=== PATIENT | female | born 1980 | race African-American/Black ===

== ENCOUNTER 2024-04-06 19:48 | Inpatient (IN) | payer MEDICAID, OTHER ==
[~2024-04-06] VITALS: Ht 175.3 cm; Wt 69.6 kg
[2024-04-06] MEDS: SODIUM CHLORIDE 0.9% 1,000 ML IV ONE (20:30)
[2024-04-06 20:51] LABS: Basophils # (auto) 0 10 ^3/uL (0-0.2); Basophils % (auto) 0.2 % (0.0-2.0); Eosinophils # (auto) 0 10 ^3/uL (0-0.8); Eosinophils % (auto) 0.1 % (0.0-7.0); Hematocrit 38.7 % (36.0-46.0); Hemoglobin 13.1 g/dL (12.2-16.2); Lymphocytes # (auto) 1.4 10 ^3/uL (0.4-5.4); Mean Corpuscular Hgb Conc. 33.8 g/dL (32.0-36.0); Mean Corpuscular Volume 88.8 fL (80.0-100.0); Monocytes # (auto) 0.6 10 ^3/uL (0-1.3); Monocytes % (auto) 6.8 % (0.0-12.0); Neutrophils # (auto) 6.7 10 ^3/uL (1.6-8.6); Neutrophils % (auto) 76.9 % (37.0-80.0); Red Blood Cells 4.36 10^6/uL (4.0-5.20); Red Cell Distribution Width 12.1 % (11.8-14.3); White Blood Cell 8.7 10^3/uL (4.4-10.8)
[2024-04-06 21:03] LABS: Chloride 109 mmol/L (98-107); Potassium 3.5 mmol/L (3.5-5.1); Sodium 142 mmol/L (136-145)
[2024-04-06 21:04] LABS: Anion Gap 3 (5-15); Calcium 8.7 mg/dL (8.7-10.4); Carbon Dioxide 30 mmol/L (20-30)
[2024-04-06 21:09] LABS: BUN/Creatinine Ratio 11.6 (10.0-20.0); Blood Urea Nitrogen 10 mg/dL (9-23); Glucose 79 mg/dL (74-106)
[2024-04-06 21:10] LABS: Magnesium 1.8 mg/dL (1.6-2.6)
[2024-04-06] MEDS: IBUPROFEN 400 MG TAB PO ONE (21:49)
[2024-04-06 22:13] LABS: Urine Bacteria FEW /hpf (None Seen); Urine Blood Negative /uL (Negative); Urine Clarity Clear (Clear); Urine Color Yellow (Yellow); Urine Mucus FEW (None Seen); Urine Protein, UAD 1+ (Negative); Urine Specific Gravity 1.038 (1.001-1.035); Urine Urobilinogen 2 mg/dL (Negative); Urine WBC 3 /hpf (0 - 5)
[2024-04-06] MEDS ORDERED: DEXTROSE (50%) 50ML SYRG IV PRN (22:45)
[2024-04-06] MEDS ORDERED: ONDANSETRON HCL 4 MG/2 ML VIAL IV PRN (22:45)
[2024-04-06] MEDS ORDERED: GABA-1250 PO (22:57)
[2024-04-06] MEDS ORDERED: MONT-8 PO (22:57)
[2024-04-06] MEDS ORDERED: LISI2.5T47 PO (22:57)
[2024-04-06] MEDS ORDERED: ALBUTEROL SULF 2.5 MG/0.5ML(0.5%) NEB SOLN NEB PRN (23:00)
[2024-04-06 23:03] LABS: Triglycerides 55 mg/dL (< 150)
[2024-04-06 23:04] LABS: LDL Cholesterol 60 mg/dL (< 100)
[2024-04-06 23:05] LABS: Cholesterol 138 mg/dL (< 200); HDL Cholesterol 63 mg/dL (40-59)
[2024-04-06 23:07] VITALS: BP 123/77; PULSE 96; RESP 18; O2SAT 100
[2024-04-06 23:09] LABS: Amphetamine Screen, Urine Neg (NEGATIVE); Barbiturate Scree,Urine Neg (NEGATIVE); Benzodiazephine Screen, Urine Neg (NEGATIVE); Cocaine Screen, Urine Neg (NEGATIVE)
[2024-04-06 23:10] LABS: Cannabinoid Screen, Urine Pos (NEGATIVE); Opiate Scree,Urine Neg (NEGATIVE); Phencyclidine Screen, Urine Neg (NEGATIVE)
[2024-04-06] MEDS: D5W/SOD CHL 0.45% 1,000 ML IV SCH (23:53)
[2024-04-07 02:04] VITALS: O2SAT 94
[2024-04-07 05:05] LABS: Basophils # (auto) 0 10 ^3/uL (0-0.2); Basophils % (auto) 0.2 % (0.0-2.0); Eosinophils # (auto) 0 10 ^3/uL (0-0.8); Eosinophils % (auto) 0.1 % (0.0-7.0); Hematocrit 35.2 % (36.0-46.0); Hemoglobin 11.8 g/dL (12.2-16.2); Lymphocytes # (auto) 2.1 10 ^3/uL (0.4-5.4); Lymphocytes % (auto) 28.3 % (10.0-50.0); Mean Corpuscular Hemoglobin 29.8 pg (28.0-32.0); Mean Corpuscular Hgb Conc. 33.6 g/dL (32.0-36.0); Mean Corpuscular Volume 88.6 fL (80.0-100.0); Monocytes # (auto) 0.5 10 ^3/uL (0-1.3); Monocytes % (auto) 7.2 % (0.0-12.0); Neutrophils # (auto) 4.9 10 ^3/uL (1.6-8.6); Neutrophils % (auto) 64.2 % (37.0-80.0); Red Blood Cells 3.98 10^6/uL (4.0-5.20); Red Cell Distribution Width 11.9 % (11.8-14.3); White Blood Cell 7.6 10^3/uL (4.4-10.8)
[2024-04-07 05:11] LABS: Chloride 109 mmol/L (98-107); Potassium 3.7 mmol/L (3.5-5.1); Sodium 140 mmol/L (136-145)
[2024-04-07 05:12] LABS: Anion Gap 2 (5-15); Calcium 8.2 mg/dL (8.7-10.4); Carbon Dioxide 29 mmol/L (20-30)
[2024-04-07 05:17] LABS: BUN/Creatinine Ratio 13.2 (10.0-20.0); Blood Urea Nitrogen 12 mg/dL (9-23); Glucose 180 mg/dL (74-106)
[2024-04-07] MEDS: ACCU-CHEK COMFORT CURVE STRIP VI SCH (07:50)
[2024-04-07 08:00] VITALS: PULSE 82; PULSE 97; RESP 16
[2024-04-07 10:57] VITALS: BP 121/79; PULSE 82; RESP 16; TEMP 98.1; O2SAT 97
[2024-04-07] MEDS: MONTELUKAST SODIUM 10 MG TAB PO SCH (11:40)
[2024-04-07] MEDS: GABAPENTIN 300 MG CAP PO SCH (11:40)
[2024-04-07] MEDS: LISINOPRIL 5 MG TAB PO SCH (11:41)
[2024-04-07 13:29] VITALS: BP 145/77; PULSE 96; RESP 18; TEMP 98.2; O2SAT 100
[2024-04-07 17:06] VITALS: BP 152/82; PULSE 90; RESP 17; TEMP 97.4; O2SAT 100
[2024-04-07] MEDS ORDERED: ATORVASTATIN 20 MG TAB PO SCH (22:00)
[2024-04-10 09:42] LABS: Hepatitis B Surface Antigen Negative (Negative)
[2024-04-10 10:11] LABS: Hepatitis C Antibody Negative (Negative)
== END 2024-04-07 18:55 | disposition left against medical advice (07) | DRG 420 ==
LOC: ER 19:48 → EDBD 19:48 → TELE 22:44 → TELE-EAST 04-07 06:24
PROVIDERS: ADMIT Internal Medicine Geriatric Medicine; ATTEND Internal Medicine Geriatric Medicine
DX: E10.649 Type 1 diabetes mellitus with hypoglycemia without coma (principal); G90.9 Disorder of the autonomic nervous system, unspecified; E10.42 Type 1 diabetes mellitus with diabetic polyneuropathy; Z96.41 Presence of insulin pump (external) (internal); Z53.29 Procedure and treatment not carried out because of patient's decision for other reasons; J45.909 Unspecified asthma, uncomplicated; I10 Essential (primary) hypertension; Z79.4 Long term (current) use of insulin; Z82.49 Family history of ischemic heart disease and other diseases of the circulatory system; Z83.3 Family history of diabetes mellitus; Z86.711 Personal history of pulmonary embolism; Z86.73 Personal history of transient ischemic attack (TIA), and cerebral infarction without residual deficits; Z90.710 Acquired absence of both cervix and uterus
CPT/HCPCS: 36415; 71045; 80048; 80061; 80307; 81001; 82962; 83036; 83735; 84443; 84484; 85025; 86803; 87340; 93005; 96360; 96361; 99291; G0378

== ENCOUNTER 2025-05-04 13:35 | Inpatient (IN) | payer MEDICAID ==
[~2025-05-04] VITALS: Ht 170.2 cm; Wt 60.0 kg
[~2025-05-04 13:35] MED LIST: GABA-1250 PO; LISI2.5T47 PO; MONT-8 PO
[2025-05-04] MEDS: SODIUM CHLORIDE 0.9% 1,000 ML IV ONE (13:45)
--- NOTE | 2025-05-04 13:51 | ED.PDOC ---
History of Present Illness HPI Comments 45-year-old female who comes in with chief complaint of suicidal thoughts for the past few days. The patient states that she was going to give herself a bunch of insulin to kill herself but before she did that she pulled out her insulin pump. The patient was at home and the printed circuit boards solder leveler's were on scene when EMS arrived. The patient at this time is stating that she still wants to hurt herself. She is complaining of some chest pain and headache over the past two days. The patient has been on a 5150 in the past which was in 2018. She does have a history of bipolar disorder as well as schizophrenia contributing to her suicidal ideation. Patient came by EMS and is answering questions appropriately. Time Seen by MD: 13:37 Primary Care Provider: DR. COHEN Reviewed Notes: Nurses Notes, Sales Order Specialist Notes, Medications, Allergies Allergies: Coded Allergies: NO KNOWN ALLERGIES (Unverified , 04/06/24) Home Meds Reported Medications Gabapentin (Gabapentin) 300 Mg Cap, 300 MG PO DAILY 04/06/24 Montelukast Sodium (MONTELUKAST SODIUM) 10 Mg Tab, 1 TAB PO DAILY 04/06/24 Lisinopril (Lisinopril) 2.5 Mg Tab, 1 TAB PO DAILY 04/06/24 Information Source: Patient, Emergency Med Personnel Mode of Arrival: EMS Severity: Moderate Timing: Days (Started two days ago) Duration: Since onset Prehospital treatment: Accucheck (450), Snack Stewardess, IVF Associated signs and symptoms Chest pain and headache Past Medical History PAST MEDICAL HISTORY: Asthma, DM, PE, Schizophrenia, TIA Past Medical History (Other): Bipolar disorder Surgical History: , 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 Family History Family History: Family hx of DM, Family hx of Cancer, Family hx of HTN, Family hx of Kidney barron Social History Smoker: Non-Smoker, Cigar Alcohol: Sober (X1 year) Drugs: Marijuana Lives In: Home Constitutional: denies: chills, diaphoresis, fatigue, fever, malaise, sweats, weakness, others EENTM: denies: blurred vision, double vision, ear bleeding, ear discharge, ear drainage, ear pain, ear ringing, eye pain, eye redness, hearing loss, mouth pain, mouth swelling, nasal discharge, nose bleeding, nose congestion, nose pain, photophobia, tearing, throat pain, throat swelling, voice changes, others Respiratory: denies: cough, hemoptysis, orthopnea, SOB at rest, shortness of breath, SOB with excertion, stridor, wheezing, others Cardiovascular: denies: chest pain, dizzy spells, diaphoresis, Dyspnea on exertion, edema, irregular heart beat, left arm pain, lightheadedness, palpitations, PND, syncope, others Gastrointestinal: denies: abdomen distended, abdominal pain, blood streaked bowels, constipated, diarrhea, dysphagia, difficulty swallowing, hematemesis, melena, nausea, poor appetite, poor fluid intake, rectal bleeding, rectal pain, vomiting, others Genitourinary: denies: abnormal vagina bleeding, burning, dyspareunia, dysuria, flank pain, frequency, hematuria, incontinence, pain, , vagina discharge, urgency, others Neurological: denies: dizziness, fainting, headache, left sided numbness, left sided weakness, numbness, paresthesia, pre-existing deficit, right sided numbness, right sided weakness, seizure, speech problems, tingling, tremors, weakness, others Musculoskeletal: denies: back pain, gout, joint pain, joint swelling, muscle pain, muscle stiffness, neck pain, others Integumetry: denies: bruises, change in color, change in hair/nails, dryness, laceration, lesions, lumps, rash, wounds, others Allergic/Immunocompromised: denies: Difficulty Healing, Frequent Infections, Hives, Itching, others Hematologic/Lymphatic: denies: anemia, blood clots, easy bleeding, easy bruising, swollen glands, others Endocrine: denies: excessive hunger, excessive sweating, excessive thirst, excessive urination, flushing, intolerance to cold, intolerance to heat, unexplained weight gain, unexplained weight loss, others Psychiatric: reports: hopeless, schizophrenia, suicidal; denies: anxiety, bipolar disorder, depression, panic disorder, sleepless, others Physical Exam General Appearance: Moderate Distress HEENT: Normal ENT Inspection, Pharynx Normal, TMs Normal Neck: Full Range of Motion, Non-Tender, Normal, Normal Inspection Respiratory: Chest Non-Tender, Lungs Clear, No Accessory Muscle Use, No Respiratory Distress, Normal Breath Sounds Cardiovascular: No Edema, No JVD, No Murmur, No Gallop, Normal Peripheral Pulses, Regular Rate/Rhythm Breast Exam: Deferred Gastrointestinal: No Organomegaly, Non Tender, No Pulsatile Mass, Normal Bowel Sounds, Soft Genitalia: Deferred Pelvic: Deferred Rectal: Deferred Extremities: No calf tenderness, Normal capillary refill, No pedal edema Musculoskeletal : Apperance: Normal Neurologic: Alert, decker operator II-XII nml as Tested, Motor Weakness, Normal Affect, Normal Mood, No Sensory Deficits Cerebellar Function: Normal Reflexes: Normal Skin: Dry, Normal Color, Warm Lymphatic: No Adenopathy Was a procedure done? Was a procedure done?: No Differential Dx Considerations may include: Suicidal ideation, hopelessness, generalized weakness, chest pain X-Ray, Labs, Meds, VS Vital Signs Date Time Temp Pulse Resp B/P (MAP) Pulse Ox O2 Delivery O2 Flow Rate FiO2 05/04/25 14:00 103 12 100 Room Air* 0 21 05/04/25 14:00 98.7 103 12 159/92 (114) 100 98.7 05/04/25 13:45 98.6 100 20 150/90 (110) 99 98.6 Lab Test 05/04/25 15:20 05/04/25 13:59 Range/Units Urine Color Colorless Yellow Urine Clarity Clear Clear Urine pH 6.0 5.0-9.0 Urine Specific [place] 1.022 1.001-1.035 Urine Protein Negative Negative Urine Ketones 1+ H Negative Urine Blood Negative Negative /uL Urine Nitrite Negative Negative Urine Bilirubin Negative Negative Urine Urobilinogen Normal Negative mg/dL Urine Leukocyte Esterase Negative Negative /uL Urine RBC 1 0 - 4 /hpf Urine Microscopic WBC < 1 0-5 /HPF Urine Squamous Epithelial Cells Few <5 /hpf Urine Bacteria None seen None Seen /hpf Urine Glucose 4+ H Normal mg/dL Urine Opiates Screen Neg NEGATIVE Urine Fentanyl Screen Neg NEGATIVE Urine Barbiturates Screen Neg NEGATIVE Urine Phencyclidine Screen Neg NEGATIVE Urine Amphetamines Screen Neg NEGATIVE Urine Benzodiazepines Screen Neg NEGATIVE Urine Cocaine Screen Neg NEGATIVE Urine Cannabinoids Screen Neg NEGATIVE White Blood Count 6.9 4.4-10.8 10^3/uL Red Blood Count 4.72 4.0-5.20 10^6/uL Hemoglobin 14.0 12.2-16.2 g/dL Hematocrit 41.5 36.0-46.0 % Mean Corpuscular Volume 87.9 80.0-100.0 fL Mean Corpuscular Hemoglobin 29.8 28.0-32.0 pg Mean Corpuscular Hemoglobin Concent 33.9 32.0-36.0 g/dL Red Cell Distribution Width 12.2 11.8-14.3 % Platelet Count 196 140-450 10^3/uL Mean Platelet Volume 9.1 6.9-10.8 fL Neutrophils (%) (Auto) 73.3 37.0-80.0 % Lymphocytes (%) (Auto) 21.2 10.0-50.0 % Monocytes (%) (Auto) 5.4 0.0-12.0 % Eosinophils (%) (Auto) 0.0 0.0-7.0 % Basophils (%) (Auto) 0.1 0.0-2.0 % Neutrophils # (Auto) 5.0 1.6-8.6 10 ^3/uL Lymphocytes # (Auto) 1.5 0.4-5.4 10 ^3/uL Monocytes # (Auto) 0.4 0-1.3 10 ^3/uL Eosinophils # (Auto) 0 0-0.8 10 ^3/uL Basophils # (Auto) 0 0-0.2 10 ^3/uL Nucleated Red Blood Cells 0.0 % Sodium Level 139 136-145 mmol/L Potassium Level 4.1 3.5-5.1 mmol/L Chloride Level 107 98-107 mmol/L Carbon Dioxide Level 25 20-31 mmol/L Anion Gap 7 5-15 Blood Urea Nitrogen 9 9-23 mg/dL Creatinine 1.05 H 0.550-1.02 mg/dL Glomerular Filtration Rate Calc 67 >90 mL/min BUN/Creatinine Ratio 8.6 L 10.0-20.0 Serum Glucose 454 *H 74-106 mg/dL Calcium Level 9.0 8.7-10.4 mg/dL Plasma/Serum Blood Alcohol < 3.0 <10 mg/dL Current Medications Medications (Trade) Dose Ordered Sig/Mauricio Route Start Time Stop Time Status Last Admin Sodium Chloride 1,000 ml @ 1,000 mls/hr Q1H ONCE IV 05/04/25 13:45 05/04/25 14:44 DC 05/04/25 13:45 Insulin Human Regular (InsuLIN R) 5 units ONCE ONCE IV 05/04/25 13:45 05/04/25 13:46 DC 05/04/25 14:40 IV Hep-Lock was established The patient was given a 1 L bolus of normal saline. The patient was given insulin 5 units IV push The CBC and chemistry panel are within normal limits except for hyperglycemia at 454 The urine tox is negative The urine test is negative for infection At this time, the patient is considered to be medically appears secondary to the diabetes The patient will be admitted with a diagnosis of uncontrolled diabetes as well as suicidal ideation The patient is being admitted Images Reviewed?: Images reviewed and evaluated by me Time of 1ST Reevaluation: 13:50 Reevaluation 1ST: Unchanged Patient Education/Counseling: Diagnosis, Treatment, Prognosis Family Education/Counseling: No Family Present Departure 1 Departure Time of Disposition: 13:51 Impression: Primary Impression: Suicidal ideation Additional Impression: Uncontrolled diabetes mellitus Qualified Codes: E10.65 - Type 1 diabetes mellitus with hyperglycemia Disposition: ADMITTED INPATIENT [facility]mit to: [facility] Condition: Fair Critical Care Note Critical Care Time?: No Stability Stability form required: Yes Unstable for transfer: Telemetry monitoring (Telemetry monitoring required), ED Physician Assesment (Clinical assesment) Heart Score Heart Score: Heart Score Response (Comments) Value History N/A 0 EKG N/A 0 Age N/A 0 Risk Factors N/A 0 Troponin N/A 0 Total 0 EVAN MEDLEY MD May 04, 2025 13:51
[2025-05-04 14:00] VITALS: PULSE 103; RESP 12; O2SAT 100
[2025-05-04 14:11] LABS: Basophils # (auto) 0 10 ^3/uL (0-0.2); Basophils % (auto) 0.1 % (0.0-2.0); Eosinophils # (auto) 0 10 ^3/uL (0-0.8); Hematocrit 41.5 % (36.0-46.0); Lymphocytes # (auto) 1.5 10 ^3/uL (0.4-5.4); Lymphocytes % (auto) 21.2 % (10.0-50.0); Mean Corpuscular Hemoglobin 29.8 pg (28.0-32.0); Mean Corpuscular Hgb Conc. 33.9 g/dL (32.0-36.0); Mean Corpuscular Volume 87.9 fL (80.0-100.0); Monocytes # (auto) 0.4 10 ^3/uL (0-1.3); Monocytes % (auto) 5.4 % (0.0-12.0); Neutrophils % (auto) 73.3 % (37.0-80.0); Platelet Count (auto) 196 10^3/uL (140-450); Red Blood Cells 4.72 10^6/uL (4.0-5.20); Red Cell Distribution Width 12.2 % (11.8-14.3); White Blood Cell 6.9 10^3/uL (4.4-10.8)
[2025-05-04 14:15] LABS: Chloride 107 mmol/L (98-107); Potassium 4.1 mmol/L (3.5-5.1); Sodium 139 mmol/L (136-145)
[2025-05-04 14:16] LABS: Anion Gap 7 (5-15); Carbon Dioxide 25 mmol/L (20-31)
[2025-05-04 14:21] LABS: BUN/Creatinine Ratio 8.6 (10.0-20.0)
[2025-05-04 14:23] LABS: Blood Alcohol < 3.0 mg/dL (<10); Blood Urea Nitrogen 9 mg/dL (9-23); Glucose 454 mg/dL (74-106)
[2025-05-04] MEDS: InsuLIN REG 1unit/0.01ml Soln (100units/ml) IV ONE (14:40)
[2025-05-04 15:34] LABS: Urine Bacteria None Seen /hpf (None Seen)
[2025-05-04 15:57] LABS: Amphetamine Screen, Urine Neg (NEGATIVE); Barbiturate Scree,Urine Neg (NEGATIVE); Benzodiazephine Screen, Urine Neg (NEGATIVE); Cannabinoid Screen, Urine Neg (NEGATIVE); Cocaine Screen, Urine Neg (NEGATIVE); Opiate Scree,Urine Neg (NEGATIVE); Phencyclidine Screen, Urine Neg (NEGATIVE)
[2025-05-04 15:58] LABS: Urine Blood Negative /uL (Negative); Urine Clarity Clear (Clear); Urine Color Colorless (Yellow); Urine Protein, UAD Negative (Negative); Urine Specific Gravity 1.022 (1.001-1.035); Urine Squamous Epithelial Cell FEW /hpf (<5); Urine Urobilinogen Normal (Negative); Urine WBC < 1 /HPF (0-5)
[2025-05-04] MEDS: LORazepam 0.5 MG TAB PO ONE (17:13)
[2025-05-04 19:34] VITALS: PULSE 84; RESP 16; O2SAT 100
[2025-05-04] MEDS ORDERED: ACETAMINOPHEN 325 MG TAB PO PRN (20:15)
[2025-05-04] MEDS: SODIUM CHLORIDE 0.9% 1,000 ML IV SCH (20:15)
[2025-05-04] MEDS ORDERED: DEXTROSE (50%) 50ML SYRG IV PRN (20:15)
[2025-05-04] MEDS ORDERED: LORazepam 2MG/ML-1ML VIAL IV PRN (20:15)
[2025-05-04] MEDS ORDERED: ONDANSETRON HCL 4 MG/2 ML VIAL IV PRN (20:15)
[2025-05-04] MEDS ORDERED: DOCUSATE SOD 100 MG CAP PO PRN (20:15)
[2025-05-04] MEDS ORDERED: HYDROcodone-ACET 5/325MG TAB PO PRN (20:15)
[2025-05-04] MEDS: METOPROLOL TARTRATE 25 MG TAB PO SCH (21:28)
--- NOTE | 2025-05-04 22:06 | DVHHP2 ---
History of Present Illness Reason for Visit: Suicidal ideation History of Present Illness The patient is a 45-year-old disorganized, hopeless, unkempt, and poor insight female with past medical history of asthma, DM, PE, schizophrenia, bipolar disorder, and TIA who presented to [facility] ED for evaluation of suicidal thoughts for the past 4 days. Patient states that he was going to commit suicide with plan to inject branch of insulin. This supervising chef's were notified on the scene when EMS arrived. The patient has been on a 5150 in the past which was in 2018. Patient was seen and evaluated in the ED, laboratory data shows WBC 6.9, platelets 196, sodium 139, potassium 4.1, BUN 9, creatinine 1.05, glucose 454, calcium 9.0, blood pressure 142/91, heart rate 96, temperature 98.5 F, O2 saturation 97% on room air. Patient was started on Accu- Chek aggressive Q 4 hours, please see medication orders section in the computer. Tele psych will follow the patient. On my assessment, patient remains disorganized, hopelessness, reports visual hallucination, believes someone was standing behind me staring, unable to contract for safety, denied chest pain, no headache, no dizziness, no diaphoresis, no shortness of breath, no diarrhea, no nausea, no vomiting, no fever, no chills. Patient was admitted for further evaluation and medical management. Past Medical History Asthma, DM, PE, Schizophrenia, TIA, Bipolar disorder Past Surgical History , Hysterectomy Family History Reviewed, noncontributory to the management of this case. Past Social History Patient lives at home, smokes Cigar, sober alcohol x1 year, uses marijuana. Review of Systems Constitutional: No: Fever, Chills, Sweats, Weakness, Malaise, Other Eyes: No: Pain, Vision change, Conjunctivae inflammation, Eyelid inflammation, Other, Redness ENT: No: Ear pain, Ear discharge, Nose pain, Nose discharge, Nose congestion, Mouth pain, Mouth swelling, Throat pain, Throat swelling, Other Respiratory: No: Cough, Dry, Shortness of breath, SOB with excertion, Wheezing, Hemoptysis, Pleuritic Pain, Sputum, Wheezing, Other Cardiovascular: No: Chest Pain, Palpitations, Orthopnea, Paroxysmal Noc. Dyspnea, Edema, Lt Headedness, Other Gastrointestinal: No: Nausea, Vomiting, Abdominal Pain, Diarrhea, Constipation, Melena, Hematochezia, Other Genitourinary: No Dysuria, No Frequency, No Incontinence, No Hematuria, No Retention, No Other Musculoskeletal: No: other, neck pain, shoulder pain, arm pain, back pain, hand pain, leg pain, foot pain Skin: No: Rash, Lesions, Jaundice, Bruising, Other Neurological: No: Weakness, Numbness, Incoordination, Change in speech, Confusion, Seizures, Other Other Psychiatric: reports: hopeless, schizophrenia, suicidal; denies: anxiety, bipolar disorder, depression, panic disorder, sleepless, others Allergies: Coded Allergies: NO KNOWN ALLERGIES (Unverified , 04/06/24) Medications Current Medications Medications Dose Ordered Sig/Mauricio Route Start Time Stop Time Status Last Admin Dose Admin Gabapentin 300 mg DAILY PO 05/05/25 10:00 Hydralazine HCl 10 mg Q6HP PRN IV 05/04/25 20:15 Lisinopril 5 mg DAILY PO 05/05/25 10:00 Metoprolol Tartrate 25 mg BID PO 05/04/25 22:00 05/04/25 21:28 25 MG Lorazepam 1 mg Q6HP PRN IV 05/04/25 20:15 Diagnostic Test (Pha) 1 strip IQ4HR 05/05/25 00:00 Insulin Human Regular IQ4HR SC 05/05/25 00:00 Dextrose 50 ml UD PRN IV 05/04/25 20:15 Sodium Chloride 1,000 ml @ 60 mls/hr [id number] IV 05/04/25 20:15 05/04/25 20:15 60 MLS/HR Acetaminophen/ Hydrocodone Bitart 1 tab Q4HP PRN PO 05/04/25 20:15 Ondansetron HCl 4 mg Q4HP PRN IV 05/04/25 20:15 Docusate Sodium 100 mg BIDPRN PRN PO 05/04/25 20:15 Acetaminophen 650 mg Q6HP PRN PO 05/04/25 20:15 Exam Vital Signs Vital Signs Date Time Temp Pulse Resp B/P (MAP) Pulse Ox O2 Delivery O2 Flow Rate FiO2 05/04/25 21:28 84 143/91 05/04/25 19:34 98.5 16 97 98.5 05/04/25 19:34 Room Air* 0 21 General Appearance: Alert, Oriented X3, Cooperative, No acute distress HEENT: Atraumatic, PERRLA, EOMI, Mucous membr. moist/pink Respiratory: Clear to auscultation, Normal air movement Cardiovascular: Regular rate, Normal S1, Normal S2, No murmurs Abdominal: Normal bowel sounds, Soft, No tenderness, No hepatospenomegaly, No masses Extremities: No clubbing, No cyanosis, No edema, Normal pulses, No tenderness/swelling Skin: No rashes, No breakdown, No significant lesion Neuro: Normal gait, Normal speech, Strength at 5/5 X4 ext, Normal tone, Sensa tion intact, Cranial nerves 3-12 NL, Reflexes 2+ Psych/Mental Status: Mental status NL, Other (Reports hopeless, schizophrenia, suicidal ideation with plan) Labs/Xrays Labs Test 05/04/25 15:20 05/04/25 13:59 Range/Units Urine Color Colorless Yellow Urine Clarity Clear Clear Urine pH 6.0 5.0-9.0 Urine Specific [place] 1.022 1.001-1.035 Urine Protein Negative Negative Urine Ketones 1+ H Negative Urine Blood Negative Negative /uL Urine Nitrite Negative Negative Urine Bilirubin Negative Negative Urine Urobilinogen Normal Negative mg/dL Urine Leukocyte Esterase Negative Negative /uL Urine RBC 1 0 - 4 /hpf Urine Microscopic WBC < 1 0-5 /HPF Urine Squamous Epithelial Cells Few <5 /hpf Urine Bacteria None seen None Seen /hpf Urine Glucose 4+ H Normal mg/dL Urine Opiates Screen Neg NEGATIVE Urine Fentanyl Screen Neg NEGATIVE Urine Barbiturates Screen Neg NEGATIVE Urine Phencyclidine Screen Neg NEGATIVE Urine Amphetamines Screen Neg NEGATIVE Urine Benzodiazepines Screen Neg NEGATIVE Urine Cocaine Screen Neg NEGATIVE Urine Cannabinoids Screen Neg NEGATIVE White Blood Count 6.9 4.4-10.8 10^3/uL Red Blood Count 4.72 4.0-5.20 10^6/uL Hemoglobin 14.0 12.2-16.2 g/dL Hematocrit 41.5 36.0-46.0 % Mean Corpuscular Volume 87.9 80.0-100.0 fL Mean Corpuscular Hemoglobin 29.8 28.0-32.0 pg Mean Corpuscular Hemoglobin Concent 33.9 32.0-36.0 g/dL Red Cell Distribution Width 12.2 11.8-14.3 % Platelet Count 196 140-450 10^3/uL Mean Platelet Volume 9.1 6.9-10.8 fL Neutrophils (%) (Auto) 73.3 37.0-80.0 % Lymphocytes (%) (Auto) 21.2 10.0-50.0 % Monocytes (%) (Auto) 5.4 0.0-12.0 % Eosinophils (%) (Auto) 0.0 0.0-7.0 % Basophils (%) (Auto) 0.1 0.0-2.0 % Neutrophils # (Auto) 5.0 1.6-8.6 10 ^3/uL Lymphocytes # (Auto) 1.5 0.4-5.4 10 ^3/uL Monocytes # (Auto) 0.4 0-1.3 10 ^3/uL Eosinophils # (Auto) 0 0-0.8 10 ^3/uL Basophils # (Auto) 0 0-0.2 10 ^3/uL Nucleated Red Blood Cells 0.0 % Sodium Level 139 136-145 mmol/L Potassium Level 4.1 3.5-5.1 mmol/L Chloride Level 107 98-107 mmol/L Carbon Dioxide Level 25 20-31 mmol/L Anion Gap 7 5-15 Blood Urea Nitrogen 9 9-23 mg/dL Creatinine 1.05 H 0.550-1.02 mg/dL Glomerular Filtration Rate Calc 67 >90 mL/min BUN/Creatinine Ratio 8.6 L 10.0-20.0 Serum Glucose 454 *H 74-106 mg/dL Calcium Level 9.0 8.7-10.4 mg/dL Plasma/Serum Blood Alcohol < 3.0 <10 mg/dL Assessment/Plan Assessment/Plan Suicidal ideation Uncontrolled diabetes mellitus Type 1 diabetes mellitus with hyperglycemia Plan 1. Admit to telemetry unit 2. Breathing treatment 3. Monitor patient every hour on 1:1 4. Management of fluids and electrolytes 5. Consultation for tele psychiatry 6. Diagnostic tests chest x-ray 7. DVT prophylaxis on SCDs 8. Repeat labs CBC, CMP in a.m. 9. Accu-Chek every 4 hours moderate dose 10. Treatment plan discussed with patient and RN. Patient verbalized understanding. Plan discussed with: Patient, Other (RN) My Orders Orders - ARNAV SOLOMON DNP Procedure Category Date Status Time *Tele Psych Consult CONS 05/04/25 Transmitted 20:09 Gabapentin Capsule PHA 05/05/25 In Process (Neurontin Capsule) 10:00 Hydralazine Injection PHA 05/04/25 In Process (Apresoline Inject 20:15 Lisinopril Tablet PHA 05/05/25 In Process (Zestril Tablet) 10:00 Metoprolol Tartrate PHA 05/04/25 In Process Tablet (Lopressor Ta 22:00 Consistent DIET 05/05/25 Transmitted Carb(Ccho)Diabetes Breakfast Lorazepam 2mg/Ml Inj PHA 05/04/25 In Process (Ativan Inj) 20:15 Glucose Blood PHA 05/05/25 In Process (Accu-Chek Comfort 00:00 Insulin R (Human) PHA 05/05/25 In Process (Insulin R) 00:00 Dextrose 50% Syringe PHA 05/04/25 In Process 20:15 Allergies DAVID 05/04/25 In Process 20:09 Code Status CODE 05/04/25 Transmitted 20:09 Sodium Chloride 0.9% PHA 05/04/25 In Process 20:15 Oxygen Per Hour RT 05/04/25 Transmitted 20:09 Hydrocodone-Acet PHA 05/04/25 In Process 5/325mg Tab ([place] 20:15 Ondansetron Hcl PHA 05/04/25 In Process (Zofran) 20:15 Docusate Sodium PHA 05/04/25 In Process Capsule (Colace 20:15 Fall Risk Precautions DAVID 05/04/[address] 20:09 Complete Blood Count LAB 05/05/25 Verified 04:00 Comprehensive LAB 05/05/25 Verified Metabolic Panel 04:00 Condition: Serious DAVID 05/04/25 In Process 20:09 Acetaminophen Tablet PHA 05/04/25 In Process (Tylenol Tablet) 20:15 Maintain Bed Rest DAVID 05/04/25 In Process 20:09 Sequential DAVID 05/04/25 In Process Compression Device Problem List: (1) Suicidal ideation (2) Uncontrolled diabetes mellitus (3) Type 1 diabetes mellitus with hyperglycemia Date of Service: May 04, 2025 Billing Provider: ARNAV SOLOMON DNP Common Visit Codes: [id number] INP/OBS CARE (HIGH) ARNAV SOLOMON DNP May 04, 2025 22:06
[2025-05-04] MEDS ORDERED: NITROGLYCERIN 0.4 MG SL TAB SL PRN (22:15)
[2025-05-04] MEDS: MORPHINE SULFATE INJ 2 MG/ml SYRG IV PRN (22:56)
[2025-05-05] MEDS: ACCU-CHEK COMFORT CURVE STRIP VI SCH
[2025-05-05] MEDS: InsuLIN REG 1unit/0.01ml Soln (100units/ml) SC SCH (00:05)
[2025-05-05] MEDS: hydrALAZINE HCL 20 MG/ML VL IV PRN (00:10)
[2025-05-05 02:59] VITALS: BP 90/59; PULSE 101; RESP 18; TEMP 98.5; O2SAT 97
[2025-05-05] MEDS ORDERED: LISINOPRIL 5 MG TAB PO SCH (10:00)
[2025-05-05] MEDS ORDERED: GABAPENTIN 300 MG CAP PO SCH (10:00)
[2025-05-05 11:39] LABS: Chloride 107 mmol/L (98-107); Sodium 141 mmol/L (136-145)
[2025-05-05 11:40] LABS: Anion Gap 12 (5-15); Calcium 9.8 mg/dL (8.7-10.4); Carbon Dioxide 22 mmol/L (20-31)
[2025-05-05 11:45] LABS: BUN/Creatinine Ratio 12.2 (10.0-20.0); Blood Urea Nitrogen 11 mg/dL (9-23); Glucose 237 mg/dL (74-106)
== END 2025-05-05 04:21 | disposition left against medical advice (07) | DRG 420 ==
LOC: ER 13:35 → EDBD 13:35 → OVERFLOW 22:04
PROVIDERS: ADMIT Nurse Practitioner Family; ATTEND Nurse Practitioner Family
DX: E10.65 Type 1 diabetes mellitus with hyperglycemia (principal); R45.851 Suicidal ideations; J45.909 Unspecified asthma, uncomplicated; F31.9 Bipolar disorder, unspecified; F17.290 Nicotine dependence, other tobacco product, uncomplicated; F20.9 Schizophrenia, unspecified; Z90.710 Acquired absence of both cervix and uterus; Z86.73 Personal history of transient ischemic attack (TIA), and cerebral infarction without residual deficits; Z83.3 Family history of diabetes mellitus; Z80.8 Family history of malignant neoplasm of other organs or systems; Z82.49 Family history of ischemic heart disease and other diseases of the circulatory system
CPT/HCPCS: 36415; 80048; 80307; 80320; 81001; 85025; 96361; 96374; G0378; J1815

== ENCOUNTER 2025-05-05 05:25 | Emergency (ER) | payer MEDICAID ==
[~2025-05-05] VITALS: Ht 172.7 cm; Wt 72.0 kg
--- NOTE | 2025-05-05 06:26 | ED.PDOC ---
Psychiatric HPI Comments 45y F who presents to the ED via EMS for chief complaint of mental health. Per EMS notes, pt was brought for chief complaint of mental health and suicidal ideations. Pt was previously admitted earlier this for insulin OD but eloped. EMS picked up pt and states she was running into busy intersections and brought to the ED for mental health and suicidal ideations. Pt in the ED, states she was handcuffed by medical director earlier this AM and has since been having generalized body aches and pains. Pt in the ED, states she wants to go home and states she needs medical clearance. Pt states she was not resisting arrest and states she was using her phone and transit police officer took her phone and grabbed her and put her on the ground. . Pt states she is having hallucinations for the past few months and states she has not been taking any of her psych medications for the past few months. Pt denies any active suicidal or homicidal ideations at this time. Chief Complaint: Mental Health Time Seen by MD: 06:29 Primary Care Provider: UNKNOWN Reviewed Notes: Estate Manager Notes, Medications, Allergies Information Source: Patient, Emergency Med Personnel Mode of Arrival: EMS Past Medical History PAST MEDICAL HISTORY: Asthma, DM, PE, Schizophrenia, TIA Surgical History: , Hysterectomy VP SOFTWARE History: Denies all VP SOFTWARE Hx Family History Family History: Family hx of DM, Family hx of Cancer, Family hx of HTN, Family hx of Kidney barron Social History Smoker: Non-Smoker, Cigar Alcohol: Sober Drugs: Marijuana Lives In: Home Constitutional: denies: chills, diaphoresis, fatigue, fever, malaise, sweats, weakness, others EENTM: denies: blurred vision, double vision, ear bleeding, ear discharge, ear drainage, ear pain, ear ringing, eye pain, eye redness, hearing loss, mouth pain, mouth swelling, nasal discharge, nose bleeding, nose congestion, nose pain, photophobia, tearing, throat pain, throat swelling, voice changes, others Respiratory: denies: cough, hemoptysis, orthopnea, SOB at rest, shortness of breath, SOB with excertion, stridor, wheezing, others Cardiovascular: denies: chest pain, dizzy spells, diaphoresis, Dyspnea on exertion, edema, irregular heart beat, left arm pain, lightheadedness, palpitations, PND, syncope, others Gastrointestinal: denies: abdomen distended, abdominal pain, blood streaked bowels, constipated, diarrhea, dysphagia, difficulty swallowing, hematemesis, melena, nausea, poor appetite, poor fluid intake, rectal bleeding, rectal pain, vomiting, others Genitourinary: denies: abnormal vagina bleeding, burning, dyspareunia, dysuria, flank pain, frequency, hematuria, incontinence, pain, , vagina discharge, urgency, others Neurological: denies: dizziness, fainting, headache, left sided numbness, left sided weakness, numbness, paresthesia, pre-existing deficit, right sided numbness, right sided weakness, seizure, speech problems, tingling, tremors, weakness, others Musculoskeletal: denies: back pain, gout, joint pain, joint swelling, muscle pain, muscle stiffness, neck pain, others Integumetry: denies: bruises, change in color, change in hair/nails, dryness, laceration, lesions, lumps, rash, wounds, others Allergic/Immunocompromised: denies: Difficulty Healing, Frequent Infections, Hives, Itching, others Hematologic/Lymphatic: denies: anemia, blood clots, easy bleeding, easy bruising, swollen glands, others Endocrine: denies: excessive hunger, excessive sweating, excessive thirst, excessive urination, flushing, intolerance to cold, intolerance to heat, unexplained weight gain, unexplained weight loss, others Psychiatric: reports: suicidal; denies: anxiety, bipolar disorder, depression, hopeless, panic disorder, schizophrenia, sleepless, others All Other Systems: Reviewed and Negative Physical Exam General Appearance: No Apparent Distress, Normal HEENT: Normal ENT Inspection, Pharynx Normal, TMs Normal Neck: Full Range of Motion, Non-Tender, Normal, Normal Inspection Respiratory: Chest Non-Tender, Lungs Clear, No Accessory Muscle Use, No Respiratory Distress, Normal Breath Sounds Cardiovascular: No Edema, No JVD, No Murmur, No Gallop, Normal Peripheral Pulses, Regular Rate/Rhythm Breast Exam: Deferred Gastrointestinal: No Organomegaly, Non Tender, No Pulsatile Mass, Normal Bowel Sounds, Soft Genitalia: Deferred Pelvic: Deferred Rectal: Deferred Extremities: No calf tenderness, Normal capillary refill, Normal inspection, Normal range of motion, Non-tender, No pedal edema Musculoskeletal : Apperance: Normal Neurologic: Alert, new accounts clerk II-XII nml as Tested, No Motor Deficits, Normal Affect, Normal Mood, No Sensory Deficits Cerebellar Function: Normal Reflexes: Normal Skin: Dry, Normal Color, Warm Lymphatic: No Adenopathy Was a procedure done? Was a procedure done?: No Psych Differential Dx Psych. Differential Dx: Schizoprenia, Suicidal OD Differential Dx: Encephalopathy, Suicidal Gesture Suicidal Differential Dx: Substance Abuse Intoxication Differential Dx: Medical Noncompliance X-Ray, Labs, Meds, VS Vital Signs Date Time Temp Pulse Resp B/P (MAP) Pulse Ox O2 Delivery O2 Flow Rate FiO2 05/06/25 19:45 99.0 115 18 95/48 (64) 98 99.0 05/06/25 19:45 98 Room Air* 0 21 05/06/25 08:00 97.9 110 16 158/92 (114) 98 97.9 05/06/25 08:00 110 16 98 Room Air* 0 21 05/05/25 20:00 98.8 119 18 136/69 (91) 100 98.8 05/05/25 19:30 Room Air* 0 21 05/05/25 14:35 97.8 05/05/25 12:46 98.0 05/05/25 11:00 98.0 112 18 167/94 (118) 97 98.0 05/05/25 11:00 Room Air* 0 21 05/05/25 05:25 98.0 100 22 118/68 (85) 100 98.0 Lab Test 05/07/25 04:31 05/07/25 00:05 05/06/25 19:52 05/06/25 17:48 Range/Units POC Glucose 207 H 285 H 364 H 422 *H 70-106 mg/dl Test 05/06/25 00:06 05/05/25 21:06 05/05/25 18:30 05/05/25 11:00 Range/Units POC Glucose 326 H 444 *H 302 H 216 H 70-106 mg/dl Test 05/05/25 06:26 05/05/25 00:00 Range/Units White Blood Count 7.6 4.4-10.8 10^3/uL Red Blood Count 5.14 4.0-5.20 10^6/uL Hemoglobin 15.7 12.2-16.2 g/dL Hematocrit 45.0 36.0-46.0 % Mean Corpuscular Volume 87.6 80.0-100.0 fL Mean Corpuscular Hemoglobin 30.5 28.0-32.0 pg Mean Corpuscular Hemoglobin Concent 34.8 32.0-36.0 g/dL Red Cell Distribution Width 12.3 11.8-14.3 % Platelet Count 202 140-450 10^3/uL Mean Platelet Volume 8.9 6.9-10.8 fL Neutrophils (%) (Auto) 77.8 37.0-80.0 % Lymphocytes (%) (Auto) 16.3 10.0-50.0 % Monocytes (%) (Auto) 5.8 0.0-12.0 % Eosinophils (%) (Auto) 0.0 0.0-7.0 % Basophils (%) (Auto) 0.1 0.0-2.0 % Neutrophils # (Auto) 5.9 1.6-8.6 10 ^3/uL Lymphocytes # (Auto) 1.2 0.4-5.4 10 ^3/uL Monocytes # (Auto) 0.4 0-1.3 10 ^3/uL Eosinophils # (Auto) 0 0-0.8 10 ^3/uL Basophils # (Auto) 0 0-0.2 10 ^3/uL Nucleated Red Blood Cells 0.3 % Sodium Level 140 136-145 mmol/L Potassium Level 3.6 3.5-5.1 mmol/L Chloride Level 106 98-107 mmol/L Carbon Dioxide Level 21 20-31 mmol/L Anion Gap 13 5-15 Blood Urea Nitrogen 10 9-23 mg/dL Creatinine 1.07 H 0.550-1.02 mg/dL Glomerular Filtration Rate Calc 65 >90 mL/min BUN/Creatinine Ratio 9.3 L 10.0-20.0 Serum Glucose 263 H 74-106 mg/dL Calcium Level 9.9 8.7-10.4 mg/dL Salicylates Level < 3.0 -30 mg/dL Acetaminophen Level < 2.0 L 10.0-20.0 UG/ML Plasma/Serum Blood Alcohol < 3.0 <10 mg/dL Urine Color Light-yellow Yellow Urine Clarity Clear Clear Urine pH 5.5 5.0-9.0 Urine Specific [place] 1.026 1.001-1.035 Urine Protein Trace H Negative Urine Ketones 2+ H Negative Urine Blood Negative Negative /uL Urine Nitrite Negative Negative Urine Bilirubin Negative Negative Urine Urobilinogen Normal Negative mg/dL Urine Leukocyte Esterase Negative Negative /uL Urine RBC 1 0 - 4 /hpf Urine Microscopic WBC 1 0-5 /HPF Urine Squamous Epithelial Cells Few <5 /hpf Urine Bacteria None seen None Seen /hpf Urine Glucose 4+ H Normal mg/dL Urine Opiates Screen Neg NEGATIVE Urine Fentanyl Screen Neg NEGATIVE Urine Barbiturates Screen Neg NEGATIVE Urine Phencyclidine Screen Neg NEGATIVE Urine Amphetamines Screen Neg NEGATIVE Urine Benzodiazepines Screen Neg NEGATIVE Urine Cocaine Screen Neg NEGATIVE Urine Cannabinoids Screen Pos NEGATIVE Current Medications Medications (Trade) Dose Ordered Sig/Mauricio Route Start Time Stop Time Status Last Admin Diagnostic Test (Pha) (Accu-Chek Comfort Curve T) 1 strip Q4HR ONCE 05/06/25 18:00 05/06/25 18:19 DC 05/06/25 18:34 Diagnostic Test (Pha) (Accu-Chek Comfort Curve T) 1 strip IQ4HR 05/06/25 20:00 05/07/25 04:33 Insulin Human Regular (InsuLIN R) IQ4HR SC 05/06/25 18:00 05/07/25 04:38 Time of 1ST Reevaluation: 07:00 Reevaluation 1ST: Unchanged Consultation: Psychiatry (05/07/2025 0500 am: Patient is still awaiting mental health inpatient care. Patient is on sliding scale insulin with Accu-Cheks every 4 hours. Patient's blood sugar has been improving and stable. Patient is medically cleared for inpatient mental health at this time) Patient Education/Counseling: Diagnosis, Treatment Family Education/Counseling: No Family Present Departure 1 Departure Time of Disposition: 18:36 Impression: Primary Impression: Type 1 diabetes mellitus with hyperglycemia Additional Impression: Suicidal ideation Disposition: 01 HOME / SELF CARE / HOMELESS Condition: Stable Comments 45-year-old female who had been seen earlier yesterday with possible insulin overdose. Patient was observed for an extended period of time in the emergency department. Patient denies any suicidal ideation at this time. Patient is able to safety plan. Patient is able to make a safety contract that she will not do anything to hurt herself. Blood sugar has been stable but a little high at 302. Patient has insulin at home and is asking to go home so that she can take care of her diabetes. Patient is medically cleared and will be discharged at this time, Critical Care Note Critical Care Time?: No Stability Stability form required: No Heart Score Heart Score: Heart Score Response (Comments) Value History N/A 0 EKG N/A 0 Age N/A 0 Risk Factors N/A 0 Troponin N/A 0 Total 0 I personally scribed for CITLALLI VÁZQUEZ MD ([email or web address]) on 05/05/25 at 06:26. Electronically submitted by Segundo Beebe ([employer]). I personally scribed for CITLALLI VÁZQUEZ MD (DVLARCO) on 05/05/25 at 06:32. Electronically submitted by Segundo Beebe ([email or web address] CITLALLI VÁZQUEZ MD May 05, 2025 06:26 RODRIGUEZ BENJAMIN MD May 05, 2025 18:38
[2025-05-05 06:37] LABS: Basophils # (auto) 0 10 ^3/uL (0-0.2); Basophils % (auto) 0.1 % (0.0-2.0); Eosinophils # (auto) 0 10 ^3/uL (0-0.8); Hemoglobin 15.7 g/dL (12.2-16.2); Lymphocytes # (auto) 1.2 10 ^3/uL (0.4-5.4); Lymphocytes % (auto) 16.3 % (10.0-50.0); Mean Corpuscular Hemoglobin 30.5 pg (28.0-32.0); Mean Corpuscular Hgb Conc. 34.8 g/dL (32.0-36.0); Mean Corpuscular Volume 87.6 fL (80.0-100.0); Monocytes # (auto) 0.4 10 ^3/uL (0-1.3); Monocytes % (auto) 5.8 % (0.0-12.0); Neutrophils # (auto) 5.9 10 ^3/uL (1.6-8.6); Neutrophils % (auto) 77.8 % (37.0-80.0); Nucleated Red Blood Cells % 0.3 %; Platelet Count (auto) 202 10^3/uL (140-450); Red Blood Cells 5.14 10^6/uL (4.0-5.20); Red Cell Distribution Width 12.3 % (11.8-14.3); White Blood Cell 7.6 10^3/uL (4.4-10.8)
[2025-05-05 06:49] LABS: Anion Gap 13 (5-15); Carbon Dioxide 21 mmol/L (20-31); Chloride 106 mmol/L (98-107); Potassium 3.6 mmol/L (3.5-5.1); Sodium 140 mmol/L (136-145)
[2025-05-05 06:50] LABS: Calcium 9.9 mg/dL (8.7-10.4)
[2025-05-05 06:55] LABS: BUN/Creatinine Ratio 9.3 (10.0-20.0); Blood Urea Nitrogen 10 mg/dL (9-23)
[2025-05-05 06:58] LABS: Blood Alcohol < 3.0 mg/dL (<10); Glucose 263 mg/dL (74-106)
[2025-05-05 07:05] LABS: Acetaminophen < 2.0 UG/ML (10.0-20.0); Salicylate < 3.0 mg/dL (-30)
--- NOTE | 2025-05-05 11:09 | DVH ---
CHEST RADIOGRAPH Indication: fall, chest pain Technique: Single frontal view of the chest was obtained COMPARISON: XY CHEST PORTABLE on DOS: 04/06/24 FINDINGS: Lines and Tubes: None Lungs: Clear Pleura: No effusion. No pneumothorax. Cardiomediastinal contours: Unremarkable Bones: Unremarkable IMPRESSION: No acute disease.
[2025-05-05] MEDS: ACETAMINOPHEN 325 MG TAB PO ONE (12:46)
[2025-05-05 16:04] LABS: Urine Bacteria None Seen /hpf (None Seen)
[2025-05-05 16:13] LABS: Urine Blood Negative /uL (Negative); Urine Clarity Clear (Clear); Urine Color Light-Yellow (Yellow); Urine Protein, UAD TRACE (Negative); Urine Specific Gravity 1.026 (1.001-1.035); Urine Squamous Epithelial Cell FEW /hpf (<5); Urine Urobilinogen Normal (Negative); Urine WBC 1 /HPF (0-5); Urine pH 5.5 (5.0-9.0)
[2025-05-05 16:20] LABS: Opiate Scree,Urine Neg (NEGATIVE)
[2025-05-05 16:21] LABS: Amphetamine Screen, Urine Neg (NEGATIVE); Barbiturate Scree,Urine Neg (NEGATIVE); Benzodiazephine Screen, Urine Neg (NEGATIVE); Cannabinoid Screen, Urine Pos (NEGATIVE); Cocaine Screen, Urine Neg (NEGATIVE); Phencyclidine Screen, Urine Neg (NEGATIVE)
--- NOTE | 2025-05-05 20:57 | DVHINCON2 ---
Date of Service if different f: May 05, 2025 Time of Service: 20:55 Consult Consult Note PSYCHIATRY ED NEW CONSULT HPI: 45 yo F pt with PPH of schizoaffective disorder presents to ED BIBA for safety, psychiatric stabilization, and possible med initiation/optimization in setting of med noncompliance, paranoia, and passive SI. Psychiatry consulted for safety evaluation and recommendations in context of current presentation Pt p/w moderate thought disorder, confusion, disorganized speech, disorganized TP, paranoia that "hospitals are trying to kill me", impaired reality testing, mild agitation/irritability, restlessness, poor sleep, anxiety, possible decline in self care, CAH, vague VH. Pt questionable/poor historian with limited J/I and appears to have baseline thought disorder in setting of SPMI dx. Also intermittent SI that are fleeting - pt found running into traffic and possibly OD on insulin yesterday Currently does not have active outpt MH services established at this time although has sought outpt MH services in past. Currently rx'd Pristiq 100 mg qd, Abilify 10 mg qhs but has been noncompliant for past several months due to paranoia Denies ETOH, THC or IDU prior to admission although does have mild hx of THC / ETOH dependency, UDS + THC , two teenage children whom she resides with, unemployed/ssi, limited support system noted (immediate family) Unknown trauma hx. Denies FH of psych hospitalizations, suicide attempts, or completed suicides No acute medical/chronic pain issues, hx of seizures/TBI, or recent head injuries, NKDA Some hx of SI/SIB via cutting and several SAs resulting in prior psych hospitalizations/5150 DTS holds. Some hx of unprovoked aggression, impulsivity, anger outbursts, emotional dysregulation, and mood reactivity. Denies any legal problems. Does not have access to firearms MSE: General Appearance/Behavior: Alert and awake; appears stated age, marginal/fair grooming and hygiene; calm and cooperative, at times labile/tearful, fair eye contact, no PMA/PMR Speech: coherent, increased Thought Process: loose, impoverished, somewhat imapired Thought Content: Abnormal Thoughts and Perceptions: denies dissociative symptoms Homicidality / Violent Thoughts: adamantly denies HI Suicidality: passive SI Hallucinations: +CAH, VH Delusions: + paranoia delusions Obsessions /compulsions: None Judgment and Insight: marginal/limited Mood & Affect: "anxious" with mood-congruent, labile Orientation: oriented x 2 Attention/Concentration: appears intact Cognition: grossly intact Assessment: 45 yo F pt with PPH of schizoaffective disorder presents to ED BIBA for safety, psychiatric stabilization, and possible med initiation/optimization in setting of med noncompliance, paranoia, and passive SI Pt p/w moderate paranoia and thought disorder and is currently expressing some SI with moderate interference in daily functioning. Limited protective factors presently. Not on any psychotropics which may be contributing to current symptoms. No outpt MH services at present. Hx of SIB/SA and poor judgment/impulsivity resulting in prior psych hospitalizations. Pt agrees to talk with staff instead of acting on any suicidal feelings while in ED. Pt medically cleared in ED Acute safety risk is moderate and is appropriate for inpatient psychiatric admission for safety, psychiatric stabilization, and possible medication initiation/optimization. Pt willing to transfer to inpt psych facility voluntarily but recommend 5150 DTS hold Primary Diagnosis: Schizoaffective disorder, mixed type. THC use d/o, unspecified Recommend 5150 DTS transfer to inpt psych facility for higher level of care 1:1 sitter is recommended Maintain suicide/elopement precautions Recommend continuation of current outpt med regimen - Pristiq 100 mg qd, Abilify 10 mg qhs One time dose of olanzapine 15 mg po and Ativan 1 mg po now Risks/benefits/alternative treatments discussed, informed consent provided by pt Reconsult telepsych services if pt requests to be discharged from ED prior to transfer/upon hold expiration Pt verbalized understanding and is receptive to above tx plan This case was discussed with ED nurse/provider and all parties in agreement with above tx plan Ricardo Manning MD Plan discussed with: Patient RICARDO MANNING MD May 05, 2025 20:57
[2025-05-05] MEDS: GABAPENTIN 300 MG CAP PO ONE (21:25)
[2025-05-05] MEDS: InsuLIN REG 1unit/0.01ml Soln (100units/ml) SC ONE (21:25)
[2025-05-05] MEDS: OLANZapine 5 MG TAB PO ONE (22:03)
[2025-05-05] MEDS: LORazepam 0.5 MG TAB PO ONE (22:04)
[2025-05-05] MEDS: ONDANSETRON ODT 4 MG TAB PO ONE (22:04)
[2025-05-06] MEDS: InsuLIN REG 1unit/0.01ml Soln (100units/ml) SC ONE (00:21)
[2025-05-06] MEDS: GABAPENTIN 300 MG CAP PO ONE (01:43)
[2025-05-06] MEDS: ACETAMINOPHEN 500 MG TAB or CAP PO ONE (01:43)
[2025-05-06] MEDS: ACCU-CHEK COMFORT CURVE STRIP VI ONE ×2 (02:15→18:34)
[2025-05-06 08:00] VITALS: PULSE 110; RESP 16; O2SAT 98
[2025-05-06] MEDS ORDERED: DEXTROSE (50%) 50ML SYRG IV PRN (18:30)
[2025-05-06] MEDS: InsuLIN REG 1unit/0.01ml Soln (100units/ml) SC SCH (18:32)
[2025-05-06 19:45] VITALS: O2SAT 98
[2025-05-06] MEDS: ACCU-CHEK COMFORT CURVE STRIP VI SCH (20:00)
[2025-05-07] MEDS: HYDROcodone-ACET 5/325MG TAB PO ONE (15:05)
[2025-05-07 19:56] VITALS: PULSE 110; RESP 14; O2SAT 98
[2025-05-08] MEDS: GABAPENTIN 300 MG CAP PO ONE (04:39)
[2025-05-08 09:15] VITALS: PULSE 100; PULSE 110; RESP 14; RESP 17; O2SAT 97; O2SAT 98
[2025-05-08] MEDS: HYDROcodone-ACET 5/325MG TAB PO ONE (15:41)
[2025-05-09 09:00] VITALS: PULSE 111; RESP 16; O2SAT 99
--- NOTE | 2025-05-09 20:44 | DVHINCON2 ---
Date of Service if different f: May 09, 2025 Consultation ([place]) Labs Laboratory Tests Test 05/05/25 00:00 05/05/25 06:26 05/09/25 12:56 Urine Color Light-yellow (Yellow) Urine Clarity Clear (Clear) Urine pH 5.5 (5.0-9.0) Urine Specific [place] 1.026 (1.001-1.035) Urine Protein Trace (Negative) Urine Ketones 2+ (Negative) Urine Blood Negative /uL (Negative) Urine Nitrite Negative (Negative) Urine Bilirubin Negative (Negative) Urine Urobilinogen Normal mg/dL (Negative) Urine Leukocyte Esterase Negative /uL (Negative) Urine RBC 1 /hpf (0 - 4) Urine Microscopic WBC 1 /HPF (0-5) Urine Squamous Epithelial Cells Few /hpf (<5) Urine Bacteria None seen /hpf (None Seen) Urine Glucose 4+ mg/dL (Normal) Urine Opiates Screen Neg (NEGATIVE) Urine Fentanyl Screen Neg (NEGATIVE) Urine Barbiturates Screen Neg (NEGATIVE) Urine Phencyclidine Screen Neg (NEGATIVE) Urine Amphetamines Screen Neg (NEGATIVE) Urine Benzodiazepines Screen Neg (NEGATIVE) Urine Cocaine Screen Neg (NEGATIVE) Urine Cannabinoids Screen Pos (NEGATIVE) White Blood Count 7.6 10^3/uL (4.4-10.8) Red Blood Count 5.14 10^6/uL (4.0-5.20) Hemoglobin 15.7 g/dL (12.2-16.2) Hematocrit 45.0 % (36.0-46.0) Mean Corpuscular Volume 87.6 fL (80.0-100.0) Mean Corpuscular Hemoglobin 30.5 pg (28.0-32.0) Mean Corpuscular Hemoglobin Concent 34.8 g/dL (32.0-36.0) Red Cell Distribution Width 12.3 % (11.8-14.3) Platelet Count 202 10^3/uL (140-450) Mean Platelet Volume 8.9 fL (6.9-10.8) Neutrophils (%) (Auto) 77.8 % (37.0-80.0) Lymphocytes (%) (Auto) 16.3 % (10.0-50.0) Monocytes (%) (Auto) 5.8 % (0.0-12.0) Eosinophils (%) (Auto) 0.0 % (0.0-7.0) Basophils (%) (Auto) 0.1 % (0.0-2.0) Neutrophils # (Auto) 5.9 10 ^3/uL (1.6-8.6) Lymphocytes # (Auto) 1.2 10 ^3/uL (0.4-5.4) Monocytes # (Auto) 0.4 10 ^3/uL (0-1.3) Eosinophils # (Auto) 0 10 ^3/uL (0-0.8) Basophils # (Auto) 0 10 ^3/uL (0-0.2) Nucleated Red Blood Cells 0.3 % Sodium Level 140 mmol/L (136-145) Potassium Level 3.6 mmol/L (3.5-5.1) Chloride Level 106 mmol/L (98-107) Carbon Dioxide Level 21 mmol/L (20-31) Anion Gap 13 (5-15) Blood Urea Nitrogen 10 mg/dL (9-23) Creatinine 1.07 mg/dL (0.550-1.02) Glomerular Filtration Rate Calc 65 mL/min (>90) BUN/Creatinine Ratio 9.3 (10.0-20.0) Serum Glucose 263 mg/dL (74-106) Calcium Level 9.9 mg/dL (8.7-10.4) Salicylates Level < 3.0 mg/dL (-30) Acetaminophen Level < 2.0 UG/ML (10.0-20.0) Plasma/Serum Blood Alcohol < 3.0 mg/dL (<10) Bedside Glucose 302 mg/dl (70-106) Appetite: Fair Appearance: Stated age, Disheveled Psychomotor activity: WNL Behavioral: Cooperative Eye contact: Appropriate Speech: WNL Affect: Mood Congruent Mood: Other Thought processes: Linear/Goal-directed Thought content: WNL Suicidal ideations: Absent Homicidal ideations: Absent Orientation: Person, Place, Time, Situation Memory intact: Recent Intellect: Average Abstractability: WNL Concentration: Adequate Attention: Adequate Judgement: WNL Insight: Fair Vitals Vital Signs Date Time Temp Pulse Resp B/P (MAP) Pulse Ox O2 Delivery O2 Flow Rate FiO2 05/09/25 09:00 98.1 111 16 142/70 (94) 99 98.1 05/09/25 09:00 Room Air* 0 21 Current medications Current Medications Medications Dose Ordered Sig/Mauricio Route Start Time Stop Time Status Last Admin Dose Admin Diagnostic Test (Pha) 1 strip IQ4HR 05/06/25 20:00 05/09/25 20:10 1 STRIP Insulin Human Regular IQ4HR SC 05/06/25 18:00 05/09/25 17:14 2 UNITS Dextrose 50 ml UD PRN IV 05/06/25 18:30 Treatment plan discussed: With staff Medication adjusted: No Diagnosis: hx of schizoaffective disorder, cannabis dependence Plan : pt presented here for increase in paranoid thoughts on 05/05/25. She has been here 3 days, hold has , and no accepting facility pt denies Si/hi/AVH and no overt delusions noted. Patient also positive for cannabis which could have caused increase in paranoia. patient no longer meeting LPS hold criteria and may discharge home and follow up with outpatient referrals Recommend to continue Abilify 10mg po qhs, pristiq 100mg daily. -discussed return to ED for psychosis or suicidal/homicidal ideation and she verbalized understanding. -encouraged substance avoidance History of Present Illness Reason for Consult : follow up and re-evaluation. Patient with initial telepsych on 05/09/25 HPI : This is a 45-year-old female with hx of schizoaffective disorder presented here BIB EMS for paranoid thoughts, hallucinations on 05/05/25. She was placed on a 5150hold with recommendation to transfer to inpatient psychiatric facility, but there has been no available accepting facility and hold today. On evaluation via telepsychiatry today, pt reports having having a "bad case of paranoia" but reports feeling better now and asking to discharge home. She reports been noncompliant with her medication and relying on marijuana card prior to hold. She also denies feeling hopeless or helpless and appears future- oriented. Per report, med was refilled and sent to pharmacy and patient plans to restart and follow up with her psychiatrist. She presently denies suicidal/homicidal ideation. he denies auditory/visual hallucinations or paranoid thoughts. No signs of responding to unseen stimuli and no reports behavior problems. She reports last psych hosp and suicide attempt was in 2018. She reports living with 23-year-old and 12-year-old daughters and receiving disability. ARNALDO MULLINS DNP May 09, 2025 20:44
[2025-05-09] MEDS ORDERED: ARIP10TA8 PO (22:22)
[2025-05-09] MEDS ORDERED: DESV1TAB15 PO (22:22)
[2025-05-09 22:25] VITALS: BP 136/78; PULSE 101; RESP 18; TEMP 98.4; O2SAT 97
== END 2025-05-09 22:31 | disposition home or self-care (01) ==
LOC: EDUNIT# 05:25 → ER 05:25 → EDBD 05:25 → ER 05-09 22:25
DX: E10.65 Type 1 diabetes mellitus with hyperglycemia (principal); F17.290 Nicotine dependence, other tobacco product, uncomplicated; F12.90 Cannabis use, unspecified, uncomplicated; F10.90 Alcohol use, unspecified, uncomplicated; J45.909 Unspecified asthma, uncomplicated; F25.0 Schizoaffective disorder, bipolar type; R45.851 Suicidal ideations; Z86.73 Personal history of transient ischemic attack (TIA), and cerebral infarction without residual deficits; Z79.899 Other long term (current) drug therapy; Z90.710 Acquired absence of both cervix and uterus; Y90.9 Presence of alcohol in blood, level not specified
CPT/HCPCS: 36415; 71045; 80048; 80307; 80320; 80329; 81001; 82947; 85025; 96372; 99285; J1815; J7042; Q0162; 82962